=== PATIENT | male | born 1945 | race Hispanic/Latino ===

== ENCOUNTER → 2024-12-27 | Outpatient (CLI) | payer OTHER ==
--- NOTE | 2024-12-28 09:06 | HMCIMG ---
EXAM: Non-contrast CT Coronary Calcium Scoring ([facility]) TECHNIQUE: Non-contrast, ECG-gated CT scan of the heart was performed. Calcium scoring was calculated using the Agatston method. CLINICAL HISTORY: [facility]CRE[facility] FIND[facility]: Calcium Distribution by Vessel: Left Main (LM): 1 lesion, Volume 34.5 mm???, Score 38.6 Left Anterior Descending (LAD): 12 lesions, Volume 73.8 mm???, Score 95.5 Left Circumflex (LCX): 2 lesions, Volume 93.9 mm???, Score 109.9 Right Coronary Artery (RCA): 6 lesions, Volume 30.0 mm???, Score 44.5 Other (Ca): 0 IMPRESSION: 1. Moderate coronary artery calcification with a total calcium score of 288.6. 2. Calcium distribution: LCX > LAD > RCA > LM. 3. Coronary age equivalent > 70 years. /[place]
== END | disposition home or self-care (01) ==
LOC: RAH 10:52
PROVIDERS: ATTEND Internal Medicine Cardiovascular Disease
DX: Z13.6 Encounter for screening for cardiovascular disorders (principal); I25.10 Atherosclerotic heart disease of native coronary artery without angina pectoris
CPT/HCPCS: 75571